=== PATIENT | female | born 1990 | race Caucasian/White ===

== ENCOUNTER → 2017-01-12 | Emergency (ER) | payer OTHER ==
--- NOTE | 2017-01-12 16:34 | Emergency Room Report ---
History of Present Illness General Chief Complaint: To Be Triaged Present Illness HPI The patient was called from the waiting room multiple times without any response. It appears she has left without being triaged less than 15 minutes after registering Medical Decision Making PA Attestation Dr. Ornelas is my supervising physician. Patient management was discussed with my supervising physician ER Course The patient was called from the waiting room multiple times without any response. It appears she has left without being triaged less than 15 minutes after registering Disposition: LEFT W/OUT BEING SEEN Condition: Unknown Referrals: NON PHYSICIAN (PCP) TAYLER CRUZ Jan 12, 2017 16:34
== END | disposition left against medical advice (07) ==
LOC: EMR 14:37
DX: Z53.21 Procedure and treatment not carried out due to patient leaving prior to being seen by health care provider (principal)

== ENCOUNTER 2017-01-20 19:21 | Emergency (ER) | payer OTHER ==
[~2017-01-20] VITALS: Ht 170.2 cm; Wt 51.7 kg
[2017-01-20] MEDS ORDERED: NKM (19:44)
[2017-01-20 20:33] LABS: APPEARANCE,URINE CLEAR; KETONES,URINE NEGATIVE (NEGATIVE); LEUKOCYTE ESTERASE ,URINE NEGATIVE (NEGATIVE); NITRITE,URINE NEGATIVE (NEGATIVE); PH,URINE 6 (4.5-8.0); PROTEIN,URINE NEGATIVE (NEGATIVE); UROBILINOGEN,URINE NORMAL MG/DL (0.0-1.0)
[2017-01-20 20:46] LABS: BASOPHILS % (AUTO) 1.1 % (0.0-2.0); EOSINOPHILS % (AUTO) 2.3 % (0.0-3.0); LYMPHOCYTES % (AUTO) 33.9 % (20.0-45.0); MEAN CORPUSCULAR HGB CONC 34.4 G/DL (32.0-36.0); MEAN CORPUSCULAR VOLUME 93 FL (80-99); MEAN PLATELET VOLUME 6.5 FL (6.5-10.1); MONOCYTES % (AUTO) 7.6 % (1.0-10.0); NEUTROPHILS % (AUTO) 55.2 % (45.0-75.0); PLATELET COUNT 370 K/UL (150-450); RED BLOOD COUNT 3.91 M/UL (4.20-5.40); RED CELL DISTRIBUTION WIDTH 10.6 % (11.6-14.8); WHITE BLOOD COUNT 8.2 K/UL (4.8-10.8)
[2017-01-20 20:50] LABS: BACTERIA,URINE FEW /HPF; SQUAMOUS EPITHELIAL CELL,UR FEW /LPF (NONE/OCC); WBC,URINE 0 /HPF (0 - 2)
[2017-01-20 20:59] LABS: ALANINE AMINOTRANSFERASE 10 U/L (3-33); ALBUMIN/GLOBULIN RATIO 1.2 (1.0-2.7); ANION GAP 14 (5-15); ASPARTATE AMINO TRANSFERASE 20 U/L (5-40); CALCIUM 9.5 mg/dL (8.6-10.2); CARBON DIOXIDE 27 mEQ/L (20-30); CHLORIDE 98 mEQ/L (98-107); CREATININE 0.6 mg/dL (0.5-0.9); GLOMERULAR FILTRATION RATE > 60 mL/min (>60); HEMOLYSIS 4; POTASSIUM 3.3 mEQ/L (3.4-4.9); SODIUM 139 mEQ/L (135-145); TOTAL PROTEIN 7.2 g/dL (6.6-8.7)
[2017-01-20] MEDS ORDERED: KCl 10% 20 mEq/15ml liquid ORAL STA (21:14)
--- NOTE | 2017-01-20 22:05 | Emergency Room Report ---
History of Present Illness General Chief Complaint: Vaginal Source: Patient (TAYLER CRUZ) Present Illness HPI The patient is a 26-year-old female presenting for continued bleeding after . The patient states that she was at 6 weeks gestation and took "6 misoprostol" for . Patient tells me this was in the clinic but tells nurse this was at a friend's house. 2 weeks after taking this medication , patient noticed that she passed the fetus while taking a shower. The patient has noticed continued bleeding and passing of tissue since then. This has now been 2 weeks. The patient states that she goes through approximately 4 tampons a day. She states pain is a 5/10 dull ache to the mid lower abdomen. It does not radiate. The patient does admit to feeling fatigued and slightly dizzy. She denies any other symptoms including fever, chills, flank pain, dysuria, nausea, vomiting, chest pain, shortness of breath. (TAYLER CRUZ) Allergies: Coded Allergies: LITHIUM (Verified Allergy, Unknown, 01/20/17) Patient History Past Medical History: see triage record Pertinent Family History: none Last Menstrual Period: unk Now: No Reviewed Nursing Documentation: PMH: Agreed, PSxH: Agreed (TAYLER CRUZ) Social History: Reports: drug use Social History Narrative living at "friend's" house (Tor Gary M.D.) Nursing Documentation-PMH History Of Psychiatric Problem: Yes - bipolar, depression, anxiety (TAYLER CRUZ) Review of Systems All Other Systems: negative except mentioned in HPI (TAYLER CRUZ) Physical Exam Vital Signs Date Time Temp Pulse Resp B/P Pulse Ox O2 Delivery O2 Flow Rate FiO2 01/20/17 19:39 98.1 95 16 116/73 100 Room Air Sp02 EP Interpretation: reviewed, normal General Appearance: no apparent distress, alert, GCS 15, non-toxic Head: normocephalic, atraumatic Eyes: bilateral eye PERRL, bilateral eye normal inspection ENT: hearing grossly normal, normal pharynx, no angioedema, normal voice Respiratory: chest non-tender, lungs clear, normal breath sounds, speaking full sentences Cardiovascular #1: regular rate, rhythm, no edema Gastrointestinal: normal bowel sounds, non tender, soft, non-distended, no guarding, no rebound Musculoskeletal: back normal, gait/station normal, normal range of motion, non- tender Neurologic: alert, oriented x3, responsive, motor strength/tone normal, sensory intact, speech normal Psychiatric: judgement/insight normal, memory normal, mood/affect normal, no suicidal/homicidal ideation Skin: normal color, no rash, warm/dry, well hydrated Lymphatic: no adenopathy (TAYLER CRUZ) Medical Decision Making PA Attestation Dr. Gary is my supervising physician. Patient management was discussed with my supervising physician (TAYLER CRUZ) Diagnostic Impression: Primary Impression: Retained products of conception Additional Impressions: Bipolar disorder Substance abuse ER Course The patient is a 26-year-old female presenting for continued vaginal bleeding after medicine induced . Differential diagnoses considered but not limited to: Menstruation, retained products of conception, ectopic , ruptured ovarian cyst, among others PE: Vitals WNL. NAD. Abdomen: Normal appearance. Non distended. No ecchymosis. Normal BS. Non TTP. No McBurney point tenderness. No guarding. No CVA tenderness Blood work is ordered as well as ultrasound Patient is signed out to Dr. Gary at this time. Case has been discussed with him. He will contact OBGYN Laboratory Tests Test 01/20/17 20:00 White Blood Count 8.2 K/UL (4.8-10.8) Red Blood Count 3.91 M/UL (4.20-5.40) L Hemoglobin 12.5 G/DL (12.0-16.0) Hematocrit 36.4 % (37.0-47.0) L Mean Corpuscular Volume 93 FL (80-99) Mean Corpuscular Hemoglobin 32.0 PG (27.0-31.0) H Mean Corpuscular Hemoglobin Concent 34.4 G/DL (32.0-36.0) Red Cell Distribution Width 10.6 % (11.6-14.8) L Platelet Count 370 K/UL (150-450) Mean Platelet Volume 6.5 FL (6.5-10.1) Neutrophils (%) (Auto) 55.2 % (45.0-75.0) Lymphocytes (%) (Auto) 33.9 % (20.0-45.0) Monocytes (%) (Auto) 7.6 % (1.0-10.0) Eosinophils (%) (Auto) 2.3 % (0.0-3.0) Basophils (%) (Auto) 1.1 % (0.0-2.0) Urine Color Yellow Urine Appearance Clear Urine pH 6 (4.5-8.0) Urine Specific [place] 1.020 (1.005-1.035) Urine Protein Negative (NEGATIVE) Urine Glucose (UA) Negative (NEGATIVE) Urine Ketones Negative (NEGATIVE) Urine Occult Blood 3+ (NEGATIVE) H Urine Nitrite Negative (NEGATIVE) Urine Bilirubin Negative (NEGATIVE) Urine Urobilinogen Normal MG/DL (0.0-1.0) Urine Leukocyte Esterase Negative (NEGATIVE) Urine RBC 2-4 /HPF (0 - 2) H Urine WBC 0 /HPF (0 - 2) Urine Squamous Epithelial Cells Few /LPF (NONE/OCC) Urine Bacteria Few /HPF (NONE) Urine HCG, Qualitative Positive Sodium Level 139 mEQ/L (135-145) Potassium Level 3.3 mEQ/L (3.4-4.9) L Chloride Level 98 mEQ/L (98-107) Carbon Dioxide Level 27 mEQ/L (20-30) Anion Gap 14 (5-15) Blood Urea Nitrogen 8 mg/dL (7-23) Creatinine 0.6 mg/dL (0.5-0.9) Estimate Glomerular Filtration Rate > 60 mL/min (>60) Glucose Level 85 mg/dL (74-106) Calcium Level 9.5 mg/dL (8.6-10.2) Total Bilirubin 0.4 mg/dL (0.0-1.2) Aspartate Amino Transferase (AST) 20 U/L (5-40) Alanine Aminotransferase (ALT) 10 U/L (3-33) Alkaline Phosphatase 43 U/L (35-104) Total Protein 7.2 g/dL (6.6-8.7) Albumin 4.0 g/dL (3.5-5.2) Globulin 3.2 g/dL Albumin/Globulin Ratio 1.2 (1.0-2.7) Human Chorionic Gonadotropin, Quant 78 mIU/mL Lab Results Impression CBC and CMP unremarkable. UA shows blood. No signs of infection. Urine preg + beta hCG minimally elevated at 78 (TAYLER CRUZ) ER Course Please see report by Mr. Cruz. Ultrasound with retained products. O+ blood. Discussed with Dr. Pate. Asked him for consideration for admission. He says not indicated. Patient states she is safe. Denies SI or HI. States she has not had any sleep for several days (due to methamphetamine). Patient purposeful and not delusional. Ambulatory here. (Tor Gary M.D.) CT/MRI/US Diagnostic Results CT/MRI/US Diagnostic Results : Imaging Test Ordered: u/s Impression Impression: Suspected retained products of conception within the endometrial canal. SHIPPER clinical evaluation is needed 2.7 cm suspected hemorrhagic right ovarian cyst. Six-week followup recommended. (Tor Gary M.D.) Last Vital Signs Date Time Temp Pulse Resp B/P Pulse Ox O2 Delivery O2 Flow Rate FiO2 01/20/17 19:39 98.1 95 16 116/73 100 Room Air Status: improved (TAYLER CRUZ) Status: improved (Tor Gary M.D.) Disposition: HOME, SELF-CARE Condition: Improved Signed Out To: Dr. Gary (TAYLER CRUZ) Scripts Doxycycline Hyclate* (VIBRAMYCIN*) 100 Mg Capsule 100 MG ORAL EVERY 12 HOURS, #14 CAP 0 Refills Prov: Tor Gary M.D. 01/20/17 Ibuprofen* (MOTRIN*) 600 Mg Tablet 600 MG ORAL Q6H Y for For Pain, #20 TAB Prov: Tor Gary M.D. 01/20/17 Referrals: [facility],REFERRING (PCP) TAYLER CRUZ January 20, 2017 22:05 Tor Gary M.D. January 20, 2017 22:31
[2017-01-20] MEDS ORDERED: Misoprostol 100mcg tab MISC STA (22:29)
[2017-01-20] MEDS ORDERED: VIBRAMYCIN100 MG ORAL (23:16)
[2017-01-20] MEDS ORDERED: IBUPROFEN600 MG ORAL (23:16)
[2017-01-20 23:24] VITALS: BP 116/73
--- NOTE | 2017-01-21 15:17 | Diagnostic Imaging Report ---
Indication:Lower abdominal and pelvic pain history of recent . Technique: Grayscale and duplex Doppler imaging of the pelvis performed utilizing a transabdominal scan and endovaginal scan. Comparison: None Findings: The endometrial canal is distended and there is heterogeneous material within the endometrial canal with prominent vascularity demonstrated by color Doppler flow imaging. The findings are suspicious for retained products of conception. Clinical evaluation by [facility] is there is complex cystic mass in the right ovary measuring 2.7 x 1.7 x 1.3 cm with faint internal echoes. This may be hemorrhagic cyst. Six-week followup recommended. There is dopplerable blood flow within both ovaries. The right ovary measures 4.1 x 3.1 x 3.3 CM. Left ovary 2.8 x 1.2 x 1.1 cm. Uterus 9 x 7 x 6 cm. Impression: Suspected retained products of conception within the endometrial canal. [facility] clinical evaluation is needed 2.7 cm suspected hemorrhagic right ovarian cyst. Six-week followup recommended.
== END 2017-01-20 23:27 | disposition home or self-care (01) ==
LOC: EMR 19:43
DX: O03.4 Incomplete spontaneous abortion without complication (principal); F31.9 Bipolar disorder, unspecified; F19.10 Other psychoactive substance abuse, uncomplicated; R42 Dizziness and giddiness; Z88.8 Allergy status to other drugs, medicaments and biological substances; R53.83 Other fatigue
CPT/HCPCS: 36415; 76856; 80053; 81003; 81025; 84702; 85025; 86900; 86901; 96374; 96375; 99284; J2405

== ENCOUNTER 2017-05-28 18:05 | Emergency (ER) | payer OTHER ==
[~2017-05-28] VITALS: Ht 170.2 cm; Wt 59.9 kg
[~2017-05-28 18:05] MED LIST: IBUPROFEN600 MG ORAL; NKM; VIBRAMYCIN100 MG ORAL
[2017-05-28 18:22] VITALS: BP 121/73
--- NOTE | 2017-05-28 18:32 | Emergency Room Report ---
History of Present Illness General Chief Complaint: Nausea Present Illness HPI 26 YO Female presents to the ED c/o intermittent 2/10 in severity abdominal cramping, N/ V and positive at home x 1 week. denies vaginal bleeding. , one previous surgical , and one pharmacological . Denies blood in the vomit or stool. Patient denies abdominal tenderness. Pt does not specifically recall LMP, estimates March 2017. Patient denies constipation or diarrhea. She denies rashes. denies vaginal discharge, vaginal bleeding. Denies CP, Palpitations, LOC, AMS, dizziness, Changes in Vision, Sensation, paresthesias, or a sudden severe headache. Allergies: Coded Allergies: LITHIUM (Verified Allergy, Unknown, 01/20/17) Patient History Past Medical History: see triage record Past Surgical History: none Pertinent Family History: none Last Menstrual Period: 02/28/17 Now: Yes : 2 Para: 0 Nursing Documentation-PMH Hx Cardiac Problems: No - RHINOPLASTY ,2 ABORTIONS History Of Psychiatric Problem: Yes - ANXIETY DEPRESSION Review of Systems All Other Systems: negative except mentioned in HPI Physical Exam Vital Signs Date Time Temp Pulse Resp B/P (MAP) Pulse Ox O2 Delivery O2 Flow Rate FiO2 05/28/17 18:12 97.5 64 20 121/73 99 Room Air Sp02 EP Interpretation: reviewed, normal General Appearance: no apparent distress, alert, GCS 15, non-toxic Head: normocephalic, atraumatic Eyes: bilateral eye normal inspection, bilateral eye PERRL ENT: hearing grossly normal, normal voice Neck: full range of motion Respiratory: lungs clear, normal breath sounds, speaking full sentences Cardiovascular #1: regular rate, rhythm Gastrointestinal: normal bowel sounds, non tender, soft, no guarding, no rebound Rectal: deferred Genitourinary: normal inspection, no CVA tenderness Musculoskeletal: back normal, gait/station normal, normal range of motion, non- tender Neurologic: alert, oriented x3, responsive, motor strength/tone normal, sensory intact, speech normal Psychiatric: judgement/insight normal, memory normal, mood/affect normal Skin: normal color, no rash, warm/dry, well hydrated Lymphatic: no adenopathy Medical Decision Making PA Attestation Dr. Ornelas is my supervising Physician whom patient management has been discussed with. Diagnostic Impression: Primary Impression: Positive test ER Course 26 YO Female presents to the ED c/o intermittent 2/10 in severity abdominal cramping, N/ V and positive at home x 1 week. denies vaginal bleeding. , one previous surgical , and one pharmacological . Denies blood in the vomit or stool. Patient denies abdominal tenderness. Pt does not specifically recall LMP, estimates March 2017. Patient denies constipation or diarrhea. She denies rashes. denies vaginal discharge, vaginal bleeding. Denies CP, Palpitations, LOC, AMS, dizziness, Changes in Vision, Sensation, paresthesias, or a sudden severe headache. Ddx considered but are not limited to: Fibroid, ectopic , Fibroid, Spontaneous , normal IUP Vital signs: are WNL, pt. is afebrile H&PE are most consistent with: IUP - positive . ORDERS: -Urine hcg- Positive -UA: WNL/ Unremarkable - Blood/RH type and screen- see attached labs ( O POSITIVE) -Pelvic US complete- normal intrauterine estimated at 10 weeks gestation. ED INTERVENTIONS: None at this time. DISCHARGE: At this time pt. is stable for d/c to home. Will provide printed patient care instructions, and any necessary prescriptions. Care plan and follow up instructions have been discussed with the patient prior to discharge. Labs Test 05/28/17 18:40 Urine Color Pale yellow Urine Appearance Clear Urine pH 6.5 (4.5-8.0) Urine Specific [place] 1.015 (1.005-1.035) Urine Protein Negative (NEGATIVE) Urine Glucose (UA) Negative (NEGATIVE) Urine Ketones Negative (NEGATIVE) Urine Occult Blood Negative (NEGATIVE) Urine Nitrite Negative (NEGATIVE) Urine Bilirubin Negative (NEGATIVE) Urine Urobilinogen Normal MG/DL (0.0-1.0) Urine Leukocyte Esterase 1+ (NEGATIVE) Urine RBC 0-2 /HPF (0 - 2) Urine WBC 2-4 /HPF (0 - 2) Urine Squamous Epithelial Cells Many /LPF (NONE/OCC) Urine Bacteria Few /HPF (NONE) Urine HCG, Qualitative Positive Last Vital Signs Date Time Temp Pulse Resp B/P (MAP) Pulse Ox O2 Delivery O2 Flow Rate FiO2 05/28/17 18:22 97.5 69 20 121/73 99 Room Air Disposition: HOME, SELF-CARE Condition: Stable Scripts Prenat Vit Comb.10/Iron/Fa/Dha (VITAFOL-OB+DHA COMBO PACK) 1 Each Combo..pkg 1 EACH PO DAILY for 30 Days, #1 PACK 5 Refills Prov: Natalia Gamboa 05/28/17 Metoclopramide Hcl* (REGLAN*) 5 Mg Tablet 5 MG ORAL EVERY 6 HOURS Y for Nausea & Vomiting, #20 TAB Prov: Natalia Gamboa 05/28/17 Patient Instructions: First Trimester of Additional Instructions: Take medications as directed. Follow up with a OBGYN provider in 3-5 days, even if your symptoms have resolved. --Please review list of primary care clinics, if you do not already have a primary care provider Return sooner to ED if new symptoms occur, or current symptoms become worse. - Please note that this Emergency Department Report was dictated using [employer] pattern maker technology software, occasionally this can lead to erroneous entry secondary to interpretation by the dictation equipment. Natalia Gamboa May 28, 2017 18:32
[2017-05-28 19:55] LABS: APPEARANCE,URINE CLEAR; KETONES,URINE NEGATIVE (NEGATIVE); LEUKOCYTE ESTERASE ,URINE 1+ (NEGATIVE); NITRITE,URINE NEGATIVE (NEGATIVE); PH,URINE 6.5 (4.5-8.0); PROTEIN,URINE NEGATIVE (NEGATIVE); UROBILINOGEN,URINE NORMAL MG/DL (0.0-1.0)
[2017-05-28 20:00] LABS: RBC,URINE 0-2 /HPF (0 - 2)
[2017-05-28 20:01] LABS: BACTERIA,URINE FEW /HPF; SQUAMOUS EPITHELIAL CELL,UR MANY /LPF (NONE/OCC)
[2017-05-28] MEDS ORDERED: REGLAN5 MG ORAL (21:06)
[2017-05-28] MEDS ORDERED: VITAFOL-OB+DHA1 EACH PO (21:06)
[2017-05-28 21:30] VITALS: BP 121/73
--- NOTE | 2017-05-29 15:13 | Diagnostic Imaging Report ---
Indication:Pelvic pain. Positive test. Technique: Grayscale and duplex Doppler imaging of the pelvis performed utilizing a transabdominal scan and endovaginal scan. Comparison: None Findings: Single living IUP demonstrated 9 weeks 6 days gestational age with heart tones. Yolk sac noted. Trace free fluid demonstrated. Both ovaries appear normal. Uterus is 10 x 9 x 7 CM. The right ovary 2.9 x 3 x 1.6 CM. Left ovary 2.5 x 3 x 1.6 CM. Impression: Single living IUP 9 weeks 6 days gestational age.
== END 2017-05-28 21:30 | disposition home or self-care (01) ==
LOC: EMR 18:32
DX: Z32.01 Encounter for pregnancy test, result positive (principal); O21.9 Vomiting of pregnancy, unspecified; O99.340 Other mental disorders complicating pregnancy, unspecified trimester; F41.8 Other specified anxiety disorders; Z88.8 Allergy status to other drugs, medicaments and biological substances
CPT/HCPCS: 36415; 76801; 76830; 81003; 81025; 86850; 86900; 86901; 99284